=== PATIENT | male | born 1945 | race Caucasian/White ===

== ENCOUNTER 2021-04-29 09:29 | Emergency (ER) | payer BC, SELFPAY ==
[2021-04-29 09:37] VITALS: BP 187/95; PULSE 72; RESP 20; TEMP 36.7; O2SAT 96
--- NOTE | 2021-04-29 10:29 | ED.GENADUL_ITS ---
Discharge Plan Disposition Patient Disposition: HOME Condition: Stable Discharge Details Clinical Impression: Mass of left side of neck, Lymphadenopathy of left cervical region Primary Care Provider: None,None ED Provider: Louie Bonner Discharge Instructions Additional Instructions: Your blood pressure was elevated today. Please take her antihypertensives as prescribed and monitor your blood pressure. If blood pressure remains elevated may need adjustment of your blood pressure medication. Please be sure to discuss this with your primary care doctor. Regarding your left neck mass. I suspect this is a enlarged lymph node. Additional outpatient diagnostics are necessary including likely a biopsy. I called and spoke with your primary care office and they would like to see you in follow-up and to arrange for referral for biopsy. Please call your primary care office to arrange timely follow-up. Blood work was performed today and a tickborne disease panel is pending at time of discharge. Be sure to follow-up with your doctor for results or access the [facility] portal for results when available. Please return to the emergency department immediately for any worsening or new concerning symptoms. Discharge Data Discharge Date/Time-TO BE ENTERED AT DEPARTURE: 04/29/21 11:16 Medical Decision Making 75-year-old male smoker here with single solitary enlarged lymph node left eye anterior cervical. No signs of focal bacterial infection. No other identified lymphadenopathy. Some associated subjective fevers at night. No recent weight loss. Plan to check CBC and chemistry to assess for signs of malignancy. I will also send tick panel given endemic tick disease and his exposures as an outdoorsman. I called and spoke with Dr. Davis who is covering for his PCP Dr. Baptiste and discussed ED presentation and course. She will plan on close follow-up for the patient and understands need for likely biopsy. Blood pressure and fluid noted to be elevated. Patient was informed was advised to follow-up with his primary care physician. Labs reviewed and provided to the patient. HPI General Mode of arrival: ambulatory . Date/Time Provider Initiated Documentation: 04/29/21 09:42 . Limitations to Documentation: no limitations . Information obtained by: patient . HPI Narrative: Thanks 75-year-old male smoker who is here visiting in the area presents with chief complaint of left neck swelling. Patient notes swollen left neck lesion first noticed 4 days ago and has persisted. Swelling is moderate. Localized. Seems more swollen at night in the morning when he is laying on that side and also somewhat painful if he lays on that side. Swelling seems to go down during the day. Not currently painful. No associated tooth pain or ear pain. No other swollen nodes. He did recently have dental work performed on the other side of his mouth. Patient does note he had ticks on him but does not recall any tick bite. Patient does states that he has had some fevers at night. No recent weight loss. Related Data Allergies Allergy/AdvReac Type Severity Reaction Status Date / Time bee venom protein (honey bee) Allergy Severe Anaphylaxis Unverified 04/29/21 09:42 General Stated Complaint: FacialProb JUSTIN: 4 Review of Systems All systems reviewed & are unremarkable except as noted in HPI and below Constitutional Constitutional: Reports as per HPI and Denies headache(s) ENT Ears, Nose, Mouth, and Throat: Denies ear discharge, Denies otalgia, Denies facial pain, Denies headache(s), Denies hoarseness, Denies mouth pain, Denies nasal congestion, Denies sinus pressure, Denies throat swelling and Denies tongue swelling Cardiovascular Cardiovascular: Denies dyspnea Respiratory Respiratory: Denies dyspnea Gastrointestinal Gastrointestinal: Denies abdominal pain Neurologic Neurologic: Denies headache(s) Allergic/Immunologic Allergic/Immunologic: Denies throat swelling and Denies tongue swelling PFSH Medical History Hypertension Smoker Social History Smoking/Tobacco Use Status: Current every day Tobacco Type: cigarettes Tobacco: How many years used: 60 Smoking risk assessment performed?: Yes Alcohol Intake: current Alcohol Intake frequency: 3 or more drinks per day Alcohol type: beer Drug use: Never Substance use type: does not use Do you feel safe at home: Yes Do you feel safe in your relationship?: Yes Exam Const General: cooperative and no acute distress [facility] Head: normocephalic and atraumatic Ears: TM normal on the left, mastoids normal and external ear abnormal (Right TM with cerumen) General nose exam: external nose normal Face and sinus: normal facial exam and sinuses nontender Mouth: moist mucous membranes Teeth and gingiva: poor dentition Throat: posterior oropharynx normal and uvula midline Eyes Conjunctivae: normal conjunctivae Sclera: normal sclerae EOM: EOM intact bilaterally Neck Neck: trachea midline, supple and lymphadenopathy (Solitary enlarged lymph node high anterior cervical, nontender to palpation) Thyroid: no masses Resp Auscultation: clear to auscultation bilaterally, no rales, no rhonchi and no w heezes Cardio Rate: regular rate and not tachycardic Rhythm: regular rhythm GI Palpation: soft, not firm, no guarding, no masses, not rigid and nontender Skin General skin exam: no rashes or lesions noted Neuro General: patient alert, patient awake, patient oriented x3 and tone normal Extrem General: no edema Psych Appearance: grossly normal Mental Status: mental status grossly normal Speech and Movement: speech and movement normal Course Vital Signs Vital signs: Vital Signs Temperature 36.7 C 04/29/21 09:37 Pulse 72 04/29/21 09:37 Respiratory Rate 20 04/29/21 09:37 Blood Pressure 187/95 H 04/29/21 09:37 Pulse Oximetry 96 04/29/21 09:37 Temperature 36.7 C 04/29/21 09:37 Temperature Source Skin 04/29/21 09:37 Pulse 72 04/29/21 09:37 Respiratory Rate 20 04/29/21 09:37 Respiratory Effort 04/29/21 09:57 Blood Pressure 187/95 H 04/29/21 09:37 Blood Pressure Position Sitting 04/29/21 09:37 Pulse Oximetry 96 04/29/21 09:37 Oxygen Delivery Method Room Air 04/29/21 09:37 Oxygen Flow Rate 0 04/29/21 09:37 Pain Level 1 04/29/21 09:57
[2021-04-29 10:44] LABS: Abs Immature Grans 0.08 10^3/uL (0.0-0.06); Absolute Eosinophil Count 0.05 10^3/uL (0.0-0.7); Absolute Monocyte Count 0.69 10^3/uL (0.1-0.8); Basophils % 0.6; Eosinophils % 0.5; HCT 46.1 % (40.0-50.0); HGB 16.1 g/dL (13.5-17.5); Immature Grans % 0.7; Lymphocytes % 10.1; MCH 32.9 pg (27.0-33.0); MCHC 34.9 % (32.0-36.0); MCV 94.3 fL (80-95); MPV 8.6 fL (8.0-11.0); Monocytes % 6.3; Neutrophils % 81.8; Nucleated RBC 0 %; Platelet Count 322 10^3/uL (130-400); RBC 4.89 10^6/uL (4.36-5.78); RDW 12.6 % (11.8-14.1); RDW-SD 43.6 fL; WBC 10.88 10^3/uL (4.4-10.8)
[2021-04-29 10:45] LABS: Absolute Basophil Count 0.07 10^3/uL (0.0-0.2)
[2021-04-29 11:05] LABS: ALT 42 U/L (16-63); AST 31 U/L (15-37); Albumin 3.9 g/dL (3.4-5.0); Alkaline Phosphatase 98 U/L (46-116); Anion Gap 10.2 mmol/L (3-11); BUN 8 mg/dL (7-18); Bilirubin, Total 0.5 mg/dL (0.2-1.0); CO2 24.8 mmol/L (21.0-32.0); CREATININE 0.9 mg/dL (0.70-1.30); Calcium 9.5 mg/dL (8.5-10.1); Chloride 99 mmol/L (98-107); Glucose 110 mg/dL (74-106); Potassium 4.7 mmol/L (3.5-5.1); Sodium 134 mmol/L (136-145); Total Protein 7.9 g/dL (6.4-8.2)
[2021-04-30 10:29] LABS: Lyme Ab w Rflx to Lyme Confirm Negative (Negative)
[2021-05-01 07:36] LABS: Anaplasma phagocytophilum Negative (Negative); B. miyamotoi PCR Negative (Negative); Babesia divergens/MO-1 Negative (Negative); Babesia duncani Negative (Negative); Babesia microti Negative (Negative); Ehrlichia chaffeensis Negative (Negative); Ehrlichia ewingii/canis Negative (Negative); Ehrlichia muris eauclairensis Negative (Negative)
== END 2021-04-29 11:16 | disposition home or self-care (01) ==
PROVIDERS: Emergency Provider Student in an Organized Health Care Education/Training Program
DX: R59.0 Localized enlarged lymph nodes (principal)
CPT/HCPCS: 36415; 80053; 87798; 99283; 85025; 86618